=== PATIENT | female | born 1980 | race Caucasian/White ===

== ENCOUNTER 2017-02-25 08:07 | Day surgery (SDC) | payer OTHER ==
[~2017-02-25 08:07] MED LIST: IV START KIT ONE; LACTATED RINGERS 0 ML ONE; LACTATED RINGERS 1,000 ML IV SCH; LIDOCAINE 1% 2 ML VIAL ID PRN
[2017-02-25] MEDS ORDERED: FENTANYL 100 MCG/2 ML VIAL ONE (08:18)
[2017-02-25] MEDS ORDERED: MIDAZOLAM HCL 1 MG/ML 2ML VIAL ONE (08:19)
[2017-02-25] MEDS ORDERED: LIDOCAINE 2% (PRES FREE) 5 ML VIAL ONE (08:19)
[2017-02-25] MEDS ORDERED: PROPOFOL 20 ML IV ONE (08:19)
[2017-02-25] MEDS ORDERED: SODIUM CHLORIDE 0.9% 1,000 ML ONE (08:21)
[2017-02-25] MEDS ORDERED: DEXAMETHASONE SOD PHOS 4 MG/1 ML VIAL ONE (10:15)
[2017-02-25] MEDS ORDERED: ONDANSETRON 4 MG/2ML 2 ML VIAL ONE (10:15)
[2017-02-25] MEDS ORDERED: MEPERIDINE 25 MG/ML SYRINGE IV PRN (10:20)
[2017-02-25] MEDS ORDERED: ONDANSETRON 4 MG/2ML 2 ML VIAL IV PRN ×2 (10:20→11:29)
[2017-02-25] MEDS ORDERED: NALOXONE HCL 0.4 MG/ML VIAL IV PRN (10:20)
[2017-02-25] MEDS ORDERED: HYDROMORPHONE HCL 1 MG/ML SYRINGE IV PRN (10:20)
[2017-02-25] MEDS ORDERED: ATROPINE SULFATE 0.4 MG/1 ML VIAL IV PRN (10:20)
[2017-02-25] MEDS ORDERED: PROMETHAZINE HCL 25 MG/ML VIAL IM PRN (10:20)
[2017-02-25] MEDS ORDERED: FENTANYL 100 MCG/2 ML VIAL IV PRN (10:20)
[2017-02-25] MEDS ORDERED: SODIUM CHLORIDE 0.9% 1,000 ML IV SCH (10:30)
[2017-02-25] MEDS ORDERED: LACTATED RINGERS 1,000 ML IV SCH ×2 (10:30→11:29)
[2017-02-25] MEDS ORDERED: KETOROLAC TROMETHAMINE 30 MG/ML 1 ML VIAL ONE (10:35)
[2017-02-25] MEDS ORDERED: ALBUTEROL SULFATE MDI 60 PUFFS/INHALER IH PRN (11:29)
[2017-02-25] MEDS ORDERED: KETOROLAC TROMETHAMINE 30 MG/ML 1 ML VIAL IV PRN (11:29)
[2017-02-25] MEDS ORDERED: OXYCODONE HCL 5 MG TABLET PO PRN (11:29)
[2017-02-25] MEDS ORDERED: DIPHENHYDRAMINE HCL 50 MG/1 ML VIAL ONE (11:47)
[2017-02-25] MEDS ORDERED: DIPHENHYDRAMINE HCL 50 MG/1 ML VIAL IV PRN (11:52)
[2017-02-25] MEDS ORDERED: DIPHENHYDRAMINE HCL 50 MG/1 ML VIAL IV ONE (11:55)
--- NOTE | 2017-02-25 19:48 | OP ---
BELKYS LAINEZ [id number] DATE OF OPERATION: 02/25/2017 SURGEON: Dr. Jonathan Hollingsworth PREOPERATIVE DIAGNOSES: Endometrial polyps, menometrorrhagia and dysmenorrhea. POSTOPERATIVE DIAGNOSES: Endometrial polyps, menometrorrhagia and dysmenorrhea. OPERATION: HYSTEROSCOPY AND EXCISION OF ENDOMETRIAL POLYPS. ANESTHESIA: General. FINDINGS: There are multiple polypoid fragments of endometrium in the posterior wall of the uterus. TECHNICAL PROCEDURE: After induction of satisfactory general anesthesia, the patient was placed in the supine lithotomy position, prepped and draped in the usual fashion. A weighted speculum was placed in the vagina. The cervix was grasped with a single-tooth tenaculum. The endocervix was dilated using progressively larger Thomas dilators to a 27-Canadian. The hysteroscope was introduced and the above findings noted. Using the resectoscope loop, all of the polypoid fragments of tissue were excised. Hemostasis was assured. The hysteroscope was then removed and the procedure terminated. The patient tolerated the procedure well and left the operating room awake and in good condition. There were no complications. Instrument, needle and sponge counts were correct. Estimated blood loss was 20 mL. There was no blood replacement.
--- NOTE | 2017-03-01 13:02 | SURGPATH ---
[facility] [address] [place] [id number] Patient Name: BELKYS LAINEZ MR#: [id number] : 1980 Gender: F Specimen #: [id number] Collected: 02/25/2017 Received: 02/28/2017 Reported: 03/01/2017 Submitting Phys: LUPE TRINIDAD Copy To Phys: [facility] Clinical History / Pre-Operative Diagnosis: ABNORMAL BLEEDING; ENDOMETRIAL POLYPS Specimen Source / Surgical Procedure Performed: FRAGMENTS OF ENDOMETRIAL POLYP Interpretation: ENDOMETRIUM, BIOPSY: - CHRONIC ENDOMETRITIS Electronically Signed Out Sonam Holden M.D. Gross Description: The specimen is received in a formalin filled container labeled with the patient's name and "fragments of endometrial polyp". An aggregate of rubbery [place] tissue fragments is 2.5 x 2.0 x 0.5 cm. Totally embedded in one cassette. Nina Gilbert Microscopic Description: Sections show fragments of proliferative type endometrium with tubular glands displaying mitotic activity. Rare plasma cells are seen in the stroma but there is no hyperplasia or neoplasia. 1: 32899 N92.0
== END 2017-02-25 13:14 | disposition home or self-care (01) ==
LOC: SDC 08:07
PROVIDERS: ATTEND Obstetrics & Gynecology
PROC: 0UB98ZX Excision of Uterus, Via Natural or Artificial Opening Endoscopic, Diagnostic (ICD-10-PCS; principal; 2017-02-25)
DX: N84.0 Polyp of corpus uteri (principal); N71.1 Chronic inflammatory disease of uterus; N94.6 Dysmenorrhea, unspecified; I10 Essential (primary) hypertension; E11.9 Type 2 diabetes mellitus without complications; E66.9 Obesity, unspecified; J45.909 Unspecified asthma, uncomplicated; F17.210 Nicotine dependence, cigarettes, uncomplicated; Z88.5 Allergy status to narcotic agent; Z91.040 Latex allergy status; Z68.37 Body mass index [BMI] 37.0-37.9, adult

== ENCOUNTER 2017-03-14 15:40 | Emergency (ER) | payer OTHER ==
[2017-03-14] MEDS ORDERED: PREDNISONE 20 MG TABLET ONE (15:57)
[2017-03-14] MEDS ORDERED: EPINEPHRINE 1 MG/ML 1ML AMP ONE (15:57)
[2017-03-14] MEDS ORDERED: DIPHENHYDRAMINE HCL 50 MG CAPSULE ONE (15:57)
== END 2017-03-14 17:45 | disposition home or self-care (01) ==
LOC: ED 15:40
DX: T78.40XA Allergy, unspecified, initial encounter (principal); R06.02 Shortness of breath; Z91.040 Latex allergy status; X58.XXXA Exposure to other specified factors, initial encounter
CPT/HCPCS: 99283 ×2; 96372; A9270; J7512; J0171